=== PATIENT | female | born 1940 | race Two or more races ===

== ENCOUNTER 2023-12-10 12:44 | Inpatient (IN) | payer OTHER ==
[~2023-12-10] VITALS: Ht 180.3 cm; Wt 53.5 kg
[2023-12-10] MEDS ORDERED: ELIQUIS2.5 MG PO (13:06)
[2023-12-10] MEDS ORDERED: MEMANTINE HCL10 MG PO (13:06)
[2023-12-10] MEDS ORDERED: TOPROL XL25 M1 PO (13:07)
[2023-12-10] MEDS ORDERED: PEPCID AC20 MG PO (13:07)
[2023-12-10] MEDS ORDERED: OMEGA-31000 MG PO (13:07)
[2023-12-10] MEDS ORDERED: AMIODARONE HCL400 MG PO (13:07)
[2023-12-10] MEDS ORDERED: [UNRECOGNIZED DRUG - OTHER] (13:07)
[2023-12-10] MEDS ORDERED: CRESTOR40 MG PO (13:07)
[2023-12-10] MEDS ORDERED: LASIX20 MG PO (13:07)
[2023-12-10] MEDS ORDERED: ISOSORBIDE MONO20 MG (13:08)
[2023-12-10] MEDS ORDERED: TUSSIN DM LIQU118 ML PO (13:08)
--- NOTE | 2023-12-10 13:09 | NUR ---
PTE ALERTA Y ORIENTADA X3 EN COMPANIA DE FAMILIAR QUIEN REFIERE PTE ES PTE DEL DR. ALFONZO GARCIA. LUCY A PTE POR DEBILIDAD Y NOTIFICA QUE PTE PADECE DE CHF Y TIENE MARCAPASOS POR ARRITMIA SEVERA. SE MIDEN SV Y SE REALIZA EKG POR PROTOCOLO DE TRIAGE, EL CUAL SE PRESENTA A DR. GRAMAJO. SE UBICA PTE.
--- NOTE | 2023-12-10 13:57 | NUR ---
SE CONECTA A PTE A MONITOR CARDIACO Y OXIMETRIA DE PULSO CONTINUA. SE COLOCA CANULA NASAL A 2LT/MIN. SE LORE MUESTRAS DE LAB Y SE CANALIZA X2 EN BRAZO DERECHO CON ANGIO #18 Y ANGIO #20, PATENTES, ELSY DE EDEMA Y ERITEMA. PEND CHEST PORTABLE
[2023-12-10 13:58] LABS: HEMATOCRIT 37.7 % (36.0-45.00); HEMOGLOBIN 12.8 g/dL (12.0-15.00); MEAN CELL VOLUME 93.8 fL (80.00-100.00); MEAN CORPUSCULAR HEMOGLOBIN 31.9 pg (27.00-32.0); PLATELET COUNT 264 K/uL (150-450); RED BLOOD COUNT 4.02 M/uL (4.00-6.00); RED CELL DISTRIBUTION WIDTH 13.7 % (11.5-14.5)
[2023-12-10 14:37] LABS: ALBUMIN 3.3 gm/dL (3.4-5.0); BILIRUBIN TOTAL 0.57 mg/dL (0.3-1.2); CALCIUM 8.8 mg/dL (8.5-10.1); CREATININE SERUM 2.02 mg/dL (0.55-1.02); GFR 23.58; GLOBULINA 3.4 G/DL (2.4-3.5); POTASSIUM 4.56 mEq/L (3.5-5.1); TOTAL PROTEIN 6.7 gm/dL (6.4-8.2)
[2023-12-10 14:53] LABS: INR 1.1; PARTIAL THROMBOPLASTIN TIME 28.9 SECONDS (22.0-34.0); PROTHROMBIN TIME 11.9 SECONDS (9.0-11.5)
--- NOTE | 2023-12-10 15:27 | NUR ---
1500 SE RECIBE PTE DEL TURNO ANTERIOR ALERTA Y ORIENTADA X3 EN LA UNIDAD DE CRITICO BRITTANY DE EMERGENCIA UBICADA EN CAMA #2 CONECTADA A MONITOR CARDIACO Y OXIMETRIA CONTINUA EN POSICION SEMI RICE CON BARANDAS ELEVADAS POR SEGURIDAD. PTE CANALIZADA X2 CON ANGIOS #18 Y #20 AMBOS PATENTES SIN NINGUN DRIP NI IV FLUIDS BAJANDO. PTE CON CANULA A 2L. ABDOMEN DEPRESIBLE AL TACTO. EXTREMIDADES INFERIORES ELSY DE EDEMA Y ENROJECIMIENTO. PTE ORINANDO ESPONTANEO. PTE CON MARCAPASO LADO LADO DERECHO Y MEDPORT LADO YE. SE MANTIENE BAJO OBSERACION POR CAMBIOS SIGNIFICATIVOS.
--- NOTE | 2023-12-10 15:51 | NUR ---
SE COLECTAN MUESTRAS DE LAB POR ORDEN MEDICA BAJO MEDIDAS ASEPTCAS.
[2023-12-10] MEDS ORDERED: AMIODARONE HCL 200 MG TABLET PO SCH (17:26)
[2023-12-10] MEDS ORDERED: MEMANTINE HCL 10 MG TABLET PO SCH (17:27)
[2023-12-10] MEDS ORDERED: ACETAMINOPHEN 500 MG GEL..CAP PO PRN (17:30)
[2023-12-10] MEDS ORDERED: 0.9 % SODIUM CHLORIDE 1,000 ML IV SCH (17:30)
[2023-12-10 20:24] VITALS: BP 141/79
[2023-12-10 20:45] LABS: PHOSPHOROUS 4.3 mg/dL (2.5-4.9)
[2023-12-10] MEDS ORDERED: APIXABAN 2.5 MG TABLET PO STA (20:53)
[2023-12-10] MEDS ORDERED: APIXABAN 2.5 MG TABLET PO SCH (20:56)
[2023-12-11] VITALS (19 sets, daily range): BP systolic 91–169; BP diastolic 43–85; O2SAT 94–100
[2023-12-11] MEDS ORDERED: APIXABAN 2.5 MG TABLET PO SCH ×2 (05:00→09:00)
[2023-12-11] MEDS ORDERED: METOPROLOL SUCCINATE 25 MG TAB.SR.24H PO SCH (09:00)
[2023-12-11] MEDS ORDERED: ATORVASTATIN CALCIUM 40 MG TABLET PO SCH (09:00)
[2023-12-11] MEDS ORDERED: ISOSORBIDE MONONITRATE 30 MG TABLET PO SCH (09:00)
[2023-12-11] MEDS ORDERED: FUROsemide 20 MG/2 ML VIAL IV SCH (09:00)
[2023-12-11] MEDS ORDERED: FAMOTIDINE/PF 20 MG in 0.9 % SODIUM CHLORIDE 8 ML IV PUSH SCH (09:00)
[2023-12-11 11:54] LABS: URINE APPEARANCE Clear; URINE BILIRRUBIN Negative (NEGATIVE); URINE BLOOD Negative; URINE COLOR Yellow; URINE GLUCOSE Negative (NEGATIVE); URINE KETONE Negative (NEGATIVE); URINE LEUKOCYTE Negative; URINE NITRATE Negative; URINE PROTEIN Negative (NEGATIVE); URINE UROBILINOGEN 0.2 E.U./dl
[2023-12-11 11:58] LABS: URINE BACTERIA 28.9 uL (0.0-1933); URINE CAST 3.35 uL (0.0-1.40); URINE WBC 2.3 uL (0.0-23.2)
[2023-12-11 12:05] LABS: URINE EPITHELIAL CELLS 1.3 uL (0.0-38.8); URINE RBC 1.3 uL (0.0-20.8)
[2023-12-12 00:28] LABS: ALBUMIN 3.3 gm/dL (3.4-5.0); BILIRUBIN TOTAL 0.37 mg/dL (0.3-1.2); CALCIUM 8.3 mg/dL (8.5-10.1); CREATININE SERUM 1.95 mg/dL (0.55-1.02); GFR 24.56; GLOBULINA 2.8 G/DL (2.4-3.5); POTASSIUM 4.6 mEq/L (3.5-5.1); TOTAL PROTEIN 6.1 gm/dL (6.4-8.2)
[2023-12-12 00:40] VITALS: BP 100/59; O2SAT 97
[2023-12-12 05:26] VITALS: BP 132/65; O2SAT 98
[2023-12-12 07:23] LABS: ALBUMIN 3.3 gm/dL (3.4-5.0); BILIRUBIN TOTAL 0.34 mg/dL (0.3-1.2); CALCIUM 8.4 mg/dL (8.5-10.1); CREATININE SERUM 1.89 mg/dL (0.55-1.02); GFR 25.46; GLOBULINA 2.8 G/DL (2.4-3.5); POTASSIUM 4.78 mEq/L (3.5-5.1); TOTAL PROTEIN 6.1 gm/dL (6.4-8.2)
[2023-12-12 07:57] VITALS: BP 115/57; O2SAT 99
[2023-12-12 11:12] VITALS: O2SAT 97
[2023-12-12 14:11] VITALS: O2SAT 99
[2023-12-12] MEDS ORDERED: CEFDINIR300 MG PO (16:27)
[2023-12-12] MEDS ORDERED: LEVALBUTER0.63 MG/3 IH (16:28)
[2023-12-12] MEDS ORDERED: INTESTINEX680 M2 PO (16:29)
[2023-12-12 18:19] VITALS: BP 105/65; O2SAT 97
== END 2023-12-12 21:04 | disposition home or self-care (01) | DRG 309 ==
LOC: ER 12:46 → ICU-2 17:50 → MEDJ 17:50
PROVIDERS: General Practice; ADMIT Internal Medicine; ATTEND Internal Medicine
PROC: BW28ZZZ Computerized Tomography (CT Scan) of Head (ICD-10-PCS; principal; 2023-12-10)
PROC: B246ZZZ Ultrasonography of Right and Left Heart (ICD-10-PCS; 2023-12-10)
PROC: 4A12X4Z Monitoring of Cardiac Electrical Activity, External Approach (ICD-10-PCS; 2023-12-12)
DX: I48.0 Paroxysmal atrial fibrillation (principal); N17.9 Acute kidney failure, unspecified; I11.0 Hypertensive heart disease with heart failure; I50.9 Heart failure, unspecified; R00.2 Palpitations; I95.89 Other hypotension; Z85.3 Personal history of malignant neoplasm of breast